=== PATIENT | male | born 1945 | race Caucasian/White ===

== ENCOUNTER 2021-10-07 20:06 | Emergency (ER) | payer OTHER ==
[~2021-10-07] VITALS: Ht 182.9 cm; Wt 79.4 kg
[~2021-10-07 20:06] MED LIST: ACET325 PO; ALBU3IS INH; AMLO5 PO; ASPI81CH PO; ATOR80 PO; Aranesp60 MCG/11 INJ; BISA10S PR; BUME2 PO; CALCA500CH PO; CARB200ER PO; CLON.1 PO; CLOP75 PO; Colace100 MG PO; DULO30 PO; ERGO400 PO; GAVILAX17 GM PO; Humalog100 UNIT/1 SC; INSDET100 SC; METO50ER PO; MONISTAT 35 GM TOP; N-ACETYL-L-CYS600 MG PO; NITR.4SL SL; POTA10T PO; RANI150 PO; TAMS.4ER PO; Xanax0.25 MG PO
[2021-10-07 20:41] LABS: BASOPHILS ABSOLUTE AUTO 0.06 K/mm3 (0.00-0.23); BASOPHILS PERCENT AUTO 1 % (0-2); EOSINOPHILS ABSOLUTE AUTO 0.31 K/mm3 (0.00-0.68); EOSINOPHILS PERCENT AUTO 4 % (0-6); Hematocrit 38.7 % (37.0-53.0); Hemoglobin 12.7 g/dL (13.5-17.5); IMMATURE GRAN ABSOLUTE AUTO 0.02 K/mm3 (0.00-0.10); IMMATURE GRAN PERCENT AUTO 0 % (0-1); LYMPHOCYTES ABSOLUTE AUTO 1.52 K/mm3 (0.84-5.20); LYMPHOCYTES PERCENT AUTO 21 % (21-46); MONOCYTES ABSOLUTE AUTO 0.84 K/mm3 (0.16-1.47); MONOCYTES PERCENT AUTO 12 % (4-13); Mean Corpuscular HGB 29.3 pg (26.0-34.0); Mean Corpuscular HGB Conc 32.8 g/dL (31.5-36.5); Mean Corpuscular Volume 89 fL (80-100); Mean Platelet Volume 11.4 fL (9.1-12.4); NEUTROPHILS ABSOLUTE AUTO 4.45 K/mm3 (1.96-9.15); NEUTROPHILS PERCENT AUTO 62 % (41-73); Platelet Count 167 K/mm3 (150-400); RDW Coefficient Variation 12.9 % (11.7-14.2); RDW Standard Deviation 42.5 fL (35.1-46.3); Red Blood Cell Count 4.33 M/mm3 (4.30-5.90)
[2021-10-07 20:59] LABS: Albumin, Blood 3.6 g/dL (3.4-5.0); Albumin/Globulin Ratio 1.2 (0.8-1.8); Bilirubin, Total 1.8 mg/dL (0.1-1.0); Bun/Creatinine Ratio 18.3 (12.0-20.0); Calcium, Blood 8.9 mg/dL (8.5-10.1); Creatinine, Blood 0.87 mg/dL (0.60-1.20); Potassium, Blood 3.3 mmol/L (3.5-5.5); Total Protein, Blood 6.6 g/dL (6.4-8.2)
[2021-10-07] MEDS ORDERED: LISINOPRIL-HCT1 EAC1 PO (21:03)
[2021-10-07] MEDS ORDERED: PANTOPRAZOLE SO40 M2 PO (21:03)
[2021-10-07 22:51] LABS: Source, Urine Clean Catch
[2021-10-07 23:09] LABS: Appearance, Urine Cloudy (Clear); Bilirubin, Urine Neg (Neg); Blood, Urine Neg (Neg); Color, Urine Yellow (P-Yellow); Glucose Qualitative, Urine Neg (Neg); Ketones, Urine Neg (Neg); Leukocyte Esterase, Urine Neg (Neg); Nitrite, Urine Neg (Neg); Protein, Urine Neg (Neg); Specific Gravity, Urine 1.015 (1.003-1.022); Urobilinogen, Urine NORM (Normal)
[2021-10-07 23:16] LABS: Amorphous Heavy (0-Heavy); Bacteria Not Seen /hpf; Red Blood Cells, Urine Not Seen /hpf (0-2); Squamous Epithelial Cells Not Seen /hpf (Few); White Blood Cells, Urine Not Seen /hpf (0-5)
== END 2021-10-07 23:33 | disposition home or self-care (01) ==
LOC: ER 20:06
PROVIDERS: Emergency Medicine; Physician Assistant
DX: R10.13 Epigastric pain (principal); Z91.040 Latex allergy status; Z79.899 Other long term (current) drug therapy
CPT/HCPCS: 36415; 71045; 71275; 74174; 80053; 81001; 83690; 83880; 84484; 85025; 93005; 93010; A9270; J2765; Q9967

== ENCOUNTER 2021-10-08 09:39 | Emergency (ER) | payer OTHER ==
[~2021-10-08] VITALS: Ht 182.9 cm; Wt 79.4 kg
[~2021-10-08 09:39] MED LIST changes: +LISINOPRIL-HCT1 EAC1 PO; +PANTOPRAZOLE SO40 M2 PO
== END 2021-10-08 10:59 | disposition home or self-care (01) ==
LOC: ER 09:39
DX: K80.20 Calculus of gallbladder without cholecystitis without obstruction (principal); K21.9 Gastro-esophageal reflux disease without esophagitis; Z79.899 Other long term (current) drug therapy; Z91.040 Latex allergy status
CPT/HCPCS: 76705

== ENCOUNTER 2023-05-26 01:52 | Emergency (ER) | payer OTHER ==
[~2023-05-26] VITALS: Ht 175.3 cm; Wt 72.6 kg
[2023-05-26 02:19] VITALS: BP 143/86
[2023-05-26] MEDS ORDERED: AMLODIPINE BES2.5 MG PO (02:21)
== END 2023-05-26 02:22 | disposition home or self-care (01) ==
LOC: ER 01:52
DX: T16.2XXA Foreign body in left ear, initial encounter (principal); W44.8XXA Other foreign body entering into or through a natural orifice, initial encounter
CPT/HCPCS: 99282

== ENCOUNTER 2024-07-28 08:55 | Day surgery (SDC) | payer OTHER ==
[2024-07-28] VITALS (15 sets, daily range): BP systolic 124–162; BP diastolic 68–95
[~2024-07-28] VITALS: Ht 182.9 cm; Wt 81.2 kg
[~2024-07-28 08:55] MED LIST changes: +AMLODIPINE BES2.5 MG PO; +Acetaminophen 500 MG Tab PO SCH; +CeFAZolin Sodium 2,000 MG in NS 100 ML IV SCH; +Chlorhexidine Mouth Care 15 ML UDC MT SCH; +Lactated Ringer's 1,000 ML IV SCH; +OxyCODONE HCL 10 MG TABCR PO SCH; +Ropivacaine 0.5% HCl/Pf 123.125 MG,EPINEPHrine HCL 0.25 MG,Ketorolac Tromethamine 15 MG... INFIL SCH; +Tranexamic Acid 100 ML IV SCH
--- NOTE | 2024-07-28 09:35 | NUR ---
Ambulatory in Day SurgeryPre-Op teaching done. Pt verbalizes understanding. History, Chart, Medications and Allergies reviewed before start of procedure.Patient confirms NPO status and agrees with scheduled surgery. Patient reports completing Chlorhexadine shower X2 prior to admission to hospital.Patient States Post-Procedure ride home has been arranged.
[2024-07-28] MEDS ORDERED: propofoL 100 ML IV ONE (09:41)
[2024-07-28] MEDS ORDERED: propofoL 20 ML IV ONE (09:43)
[2024-07-28] MEDS ORDERED: FLU VACC TS2024-25(6MOS UP)/PF 45 MCG/0.5 ML SYRINGE IM SCH (10:40)
[2024-07-28] MEDS ORDERED: HYDROmorphone HCl/Pf 1MG SYR IV PRN ×2 (10:40→11:50)
[2024-07-28] MEDS ORDERED: Bisacodyl 10 MG Supp PR PRN (10:40)
[2024-07-28] MEDS ORDERED: DiphenhydrAMINE HCL 25 MG Cap PO PRN (10:40)
[2024-07-28] MEDS ORDERED: Metoclopramide HCl 5MG / ML 2ML Vial IV PRN (10:45)
[2024-07-28] MEDS ORDERED: OxyCODONE HCL 5 MG TAB PO PRN ×2 (10:45)
[2024-07-28] MEDS ORDERED: Promethazine HCl 25 MG Tab PO PRN (10:45)
[2024-07-28] MEDS ORDERED: Ondansetron HCl 2 MG / ML 2ML Vial IV PRN ×2 (10:45→11:50)
[2024-07-28] MEDS ORDERED: Magnesium Hydroxide Conc 10 ML UDC PO PRN (10:50)
[2024-07-28] MEDS ORDERED: Lactated Ringer's 1,000 ML IV SCH (10:50)
[2024-07-28] MEDS ORDERED: Albuterol 2.5 MG/3 ML VIAL INH PRN (11:50)
[2024-07-28] MEDS ORDERED: Morphine Sulfate 4 MG/1 ML Injection IV PRN (11:50)
[2024-07-28] MEDS ORDERED: FentaNYL Citrate 50 MCG/ML 2 ML Injection IV PRN ×2 (11:50)
[2024-07-28] MEDS ORDERED: Ketorolac Tromethamine 15mg Vial IV SCH (12:00)
[2024-07-28] MEDS ORDERED: Dexamethasone Sod Phos 10 MG/ML 1ML VIAL ONE (12:26)
[2024-07-28] MEDS ORDERED: Ondansetron HCl 2 MG / ML 2ML Vial ONE (12:26)
[2024-07-28] MEDS ORDERED: FentaNYL Citrate 50 MCG/ML 2 ML Injection ONE (13:07)
[2024-07-28] MEDS ORDERED: Acetaminophen 500 MG Tab PO SCH (16:00)
[2024-07-28] MEDS ORDERED: ASPI81CH PO (17:35)
--- NOTE | 2024-07-28 19:28 | NUR ---
POST OP SUMMARY TO DC ARRIVAL TO SURGICAL UNIT AROUND 1400 VIA HOSPITAL BED. ALERT, ORIENTED, & PLEASANT. LUNGS CLEAR. HRR. PPP. L KNEE w/ AJIME WRAP & AQUACEL; NO DRNG NOTED. DENIES N/V; SNACKS & DRINKS GIVEN. C/O L KNEE PAIN, AFTER SNACKS EATEN WILL MEDICATE. WORKED w/ THERAPY FOR 1 HOUR AROUND 1600; WAS ABLE TO VOID DURING SESSION. DISCHARGE @ 1827 PT WORKED w/ THERAPY. PAIN WELL CONTROLLED. EATING, DRINKING WELL. VOIDED x 2. DRSGS & POLAR PACK SENT w/ PT. ESCORTED OUT VIA W/C.
[2024-07-28] MEDS ORDERED: CeFAZolin Sodium 2,000 MG in NS 100 ML IV SCH (19:30)
[2024-07-28] MEDS ORDERED: Docusate Sodium 100 MG Cap PO SCH (21:00)
[2024-07-29] MEDS ORDERED: Pantoprazole Sodium 40 MG Tab PO SCH (06:00)
[2024-07-29] MEDS ORDERED: Cholecalciferol 1000 Unit Tablet (=25MCG) PO SCH (09:00)
[2024-07-29] MEDS ORDERED: Aspirin 81 MG Chew PO SCH (09:00)
[2024-07-29] MEDS ORDERED: HydroCHLOROthiazide 25 mg Tab PO SCH (09:00)
[2024-07-29] MEDS ORDERED: Lisinopril 20 MG Tab PO SCH (09:00)
[2024-07-29] MEDS ORDERED: AmLODIPine Besylate 5 MG Tab PO SCH (09:00)
== END 2024-07-28 18:33 | disposition home or self-care (01) ==
LOC: ORSCMMR 08:55 → SURS 13:40 → ORSCMMR 18:33
PROVIDERS: Orthopaedic Surgery
PROC: 0SRD0JA Replacement of Left Knee Joint with Synthetic Substitute, Uncemented, Open Approach (ICD-10-PCS; principal; 2024-07-28 10:00)
PROC: 8E0Y0CZ Robotic Assisted Procedure of Lower Extremity, Open Approach (ICD-10-PCS; principal; 2024-07-28 10:00)
DX: M17.11 Unilateral primary osteoarthritis, right knee (principal); I10 Essential (primary) hypertension; K21.9 Gastro-esophageal reflux disease without esophagitis; Z79.899 Other long term (current) drug therapy; Z85.46 Personal history of malignant neoplasm of prostate
CPT/HCPCS: 73560-LT; 97116; 97161; 97530; A9270; C1713; C1776; J0171; J0690; J0735; J1100; J1885; J2405; J2704; J2795; J3010; J7120

== ENCOUNTER 2024-09-28 12:10 | Emergency (ER) | payer OTHER ==
[~2024-09-28] VITALS: Ht 182.9 cm; Wt 81.7 kg
[~2024-09-28 12:10] MED LIST changes: -Acetaminophen 500 MG Tab PO SCH; -CeFAZolin Sodium 2,000 MG in NS 100 ML IV SCH; -Chlorhexidine Mouth Care 15 ML UDC MT SCH; -Lactated Ringer's 1,000 ML IV SCH; -OxyCODONE HCL 10 MG TABCR PO SCH; -Ropivacaine 0.5% HCl/Pf 123.125 MG,EPINEPHrine HCL 0.25 MG,Ketorolac Tromethamine 15 MG... INFIL SCH; -Tranexamic Acid 100 ML IV SCH
[2024-09-28 13:06] VITALS: BP 138/86
== END 2024-09-28 13:10 | disposition home or self-care (01) ==
LOC: ER 12:10
DX: T16.1XXA Foreign body in right ear, initial encounter (principal); W44.8XXA Other foreign body entering into or through a natural orifice, initial encounter; Z88.2 Allergy status to sulfonamides
CPT/HCPCS: 99282